=== PATIENT | female | born 1980 | race Caucasian/White ===

== ENCOUNTER → 2020-03-20 | Outpatient (CLI) | payer BC, MEDICAID | LOC: GMAL 12:59 | PROVIDERS: ATTEND Family Medicine | DX: R53.83 Other fatigue (principal); E53.8 Deficiency of other specified B group vitamins; E55.9 Vitamin D deficiency, unspecified ==

== ENCOUNTER → 2020-04-03 | Outpatient (CLI) | payer BC | LOC: GMAL 10:24 | PROVIDERS: ATTEND Family Medicine | DX: D50.8 Other iron deficiency anemias (principal) ==

== ENCOUNTER → 2020-04-15 | Outpatient (CLI) | payer BC ==
--- NOTE | 2020-04-16 08:04 | US ---
EXAM DESCRIPTION: Pelvis Transvaginal: Ultrasound. CLINICAL HISTORY: 39 years Female HYPERTROPHY OF UTERUS COMPARISON: Bilateral screening mammogram on this visit. TECHNIQUE: Endovaginal scanning; [place]-scale and Doppler modes. FINDINGS: Uterus 10.2 x 5.0 x 6.2 cm 164.9 mL. Uterus is anteverted. Endometrial thickness 6.8 mm. Echogenic mass in the submucosal tissues measures 1.4 x 1.2 x 1.2 cm. Myometrium heterogeneous.. Cluster of cysts measuring 2.3 x 2.3 x 1.3 cm in the lower uterine segment. Other smaller subcentimeter cysts. Slightly hyperechoic solid mass to the right of the endometrium measuring 2.6 x 1.7 x 1.3 cm. Similar-appearing mass to the left of the endometrium measuring 2.1 x 2.1 x 1.6 cm. Cervix several cysts described above may be in the cervix. Cul-de-sac no fluid. Right ovary 2.4 x 2.4 x 2.0 cm 5.8 mL.. Normal color Doppler vascularity. Multiple follicles but no cysts. No adnexal mass or free fluid. Left ovary 2.5 x 2.1 x 1.9 cm 5.2 mL.. Normal color Doppler vascularity. No follicles or cysts. No adnexal mass or free fluid. IMPRESSION: 1. Uterus is enlarged and in normal position. Questionable endometrial thickening. Submucosal fibroid 1.4 cm. Multiple other fibroids bilaterally. Cluster of cysts in the lower uterine segment or the cervix. No fluid in the cul-de-sac. 2. Bilateral ovaries normal size and vascularity. Multiple follicles but no cysts in the right ovary. No adnexal mass or free fluid. Electronically signed by: Sunday Lucio MD 04/16/2020 8:02 AM [facility]
--- NOTE | 2020-04-16 11:53 | MAM ---
EXAM DESCRIPTION: 3D Screening BILATERAL : Digital Mammography. CLINICAL HISTORY: 39 years Female SCREEN . No complaints. Remote family history of breast cancer. Menarche age 10. Childbirth age 19 premenopausal. No HRT.. Lifetime risk of developing breast cancer (Tyrer-Cuzick model)(%): 9.0.. COMPARISON: Baseline study at this facility. TECHNIQUE: Bilateral CC and MLO projection full-field images, digital tomosynthesis mammographic technique. Bilateral digital 2-D full-field MLO images. CAD available for 2-D images. FINDINGS: The breast parenchymal density pattern is: Heterogeneously dense breast tissue, which may obscure small masses. Axillary nodes. Focal asymmetry in the middle third of the left breast 4.4 cm from the nipple at 9:00. Not associated with calcifications. No skin thickening or nipple retraction No focal, stellate mass or density, focal asymmetry , and no suspicious microcalcifications right breast IMPRESSION: BI-RADS CATEGORY: 0 - INCOMPLETE- Need additional imaging evaluation. RECOMMENDATIONS: FOLLOW-UP: Recall for additional imaging: Full field imaging of the left breast utilizing two-dimensional and tomosynthesis lateral medial projections. Followed by directed left breast ultrasound in the region of interest.. Written communication concerning the IMPRESSION and Follow-up, will be mailed to the patient and referring health care provider. Electronically signed by: Sunday Lucio MD 04/16/2020 11:52 AM [facility]
== END ==
LOC: MAMMO 09:34
PROVIDERS: ATTEND Nurse Practitioner Acute Care
DX: Z12.31 Encounter for screening mammogram for malignant neoplasm of breast (principal); N85.2 Hypertrophy of uterus; D25.9 Leiomyoma of uterus, unspecified; N85.8 Other specified noninflammatory disorders of uterus

== ENCOUNTER → 2020-04-27 | Outpatient (CLI) | payer BC ==
--- NOTE | 2020-04-28 16:10 | US ---
EXAM DESCRIPTION: Diagnostic Mammo,Left (accession [id number]), Breast,Left (accession [id number]): Ultrasound CLINICAL HISTORY: 39 [id number] focal asymmetry left breast COMPARISON: Bilateral screening digital breast tomosynthesis April 15 TECHNIQUE: Left breast LM projection full-field images, digital tomosynthesis technique. Left breast 2-D digital full-field images: LM projection. CAD available for 2-D images.. Transcutaneous scanning of the left breast utilizing agarwal-scale and Doppler modes. Scanning performed by the consulting project director observation by Dr. Lucio. FINDINGS: The breast parenchymal density pattern is: Heterogeneously dense breast tissue, which may obscure small masses. No skin thickening or nipple retraction No focal, stellate mass or density, focal asymmetry , and no suspicious microcalcifications left breast. Ultrasound: Scanning the medial left breast, middle third. Mostly fibroglandular tissues. Minimal fatty tissues. Emphasis at the 9:00 position. No dominant soft tissue mass, no distinct cysts, no parenchymal edema, no large calcifications. IMPRESSION: Benign exam. BIRAD CATEGORY: 2 BENIGN FINDINGS. RECOMMENDATIONS: FOLLOW UP: Routine digital bilateral mammographic screening, one year interval from April 2020. Written communication explaining the IMPRESSION and follow-up, will be mailed to the patient and referring health care provider. The FINDINGS and the FOLLOW-UP plan were reviewed in person with the patient after the examination. According to the [employer], yearly mammograms are recommended starting at age 40 and continuing as long as a woman is in good health. Any breast change noted on a breast self-exam should be reported promptly to the patient's healthcare provider. Breast MRI is recommended for women with an approximately 20-25% or greater lifetime risk of breast cancer, including women with a strong family history of breast or ovarian cancer and women who have been treated for Hodgkin's disease. A negative mammographic report should not delay tissue diagnosis in patients with significant clinical history or physical findings. Extremely dense breast tissue limits the sensitivity of digital mammography. Electronically signed by: Sunday Lucio MD 04/28/2020 4:08 PM [facility]
== END ==
LOC: MAMMO 14:29
PROVIDERS: ATTEND Nurse Practitioner Acute Care
DX: R92.2 Inconclusive mammogram (principal)